=== PATIENT | female | born 1995 | race African-American/Black ===

== ENCOUNTER 2019-11-25 14:54 | Emergency (ER) | payer OTHER ==
[~2019-11-25] VITALS: Ht 162.6 cm; Wt 70.0 kg
[2019-11-25 16:28] LABS: APPEARANCE,URINE CLEAR (CLEAR); BILIRUBIN,URINE NEGATIVE (NEGATIVE); GLUCOSE, URINE (UA) NEGATIVE (NEGATIVE); KETONES,URINE NEGATIVE (NEGATIVE); LEUKOCYTE ESTERASE ,URINE LARGE (NEGATIVE); NITRATE,URINE NEGATIVE (NEGATIVE); OCCULT BLOOD,URINE MODERATE (NEGATIVE); PROTEIN,URINE NEGATIVE (NEGATIVE); UROBILINOGEN,URINE 0.2 mg/dL (<=1.0)
[2019-11-25 17:08] LABS: BACTERIA,URINE Many /HPF (None Seen)
[2019-11-25 17:09] LABS: RBC,URINE 0-2 /HPF (0-2); SQUAMOUS EPITHELIAL CELL,UR Few /LPF (None Seen); WBC,URINE 26-50 /HPF (0-5)
[2019-11-25 17:30] VITALS: BP 124/66
== END 2019-11-25 17:43 | disposition home or self-care (01) ==
LOC: EMS 15:02
DX: N39.0 Urinary tract infection, site not specified (principal); R03.0 Elevated blood-pressure reading, without diagnosis of hypertension
CPT/HCPCS: 87086